=== PATIENT | female | born 2000 | race Caucasian/White ===

== ENCOUNTER 2018-05-08 15:07 | Emergency (ER) | payer OTHER ==
[2018-05-08 15:13] VITALS: BP 127/81
--- NOTE | 2018-05-08 15:35 | EDPHY ---
H & P Stated Complaint: fell in bathtub yesterday hitting head hard/n/v williamson Time Seen by Provider: 05/08/18 15:18 HPI/ROS: CHIEF COMPLAINT: Head injury, vomiting HISTORY OF PRESENT ILLNESS: 88-year-old female presents with vomiting and headache after a head injury. Yesterday she slipped in the bathtub and fell forward, striking her head on the floor. Immediate onset of severe headache, described as the worst headache ever. Associated with multiple episodes of vomiting. Unable to tolerate oral fluids yesterday. The headache is less severe today, currently rated as 3/10. Ibuprofen with some relief. No nausea today. No neck pain or other injuries. REVIEW OF SYSTEMS: complete 10 point ROS negative except at noted in the HPI - Personal History LMP (Females 10-55): Now Current Tetanus Diphtheria and Acellular Pertussis (TDAP): Yes - Medical/Surgical History Hx Asthma: No Hx Chronic Respiratory Disease: No Hx Diabetes: No Hx Cardiac Disease: No Hx Renal Disease: No Hx Cirrhosis: No Hx Alcoholism: No Hx HIV/AIDS: No Hx Splenectomy or Spleen Trauma: No Other PMH: denies - Social History Smoking Status: Never smoked - Physical Exam Exam: General Appearance: Alert, pleasant Head: Normal inspection, tenderness over the forehead without ecchymosis or swelling Eyes: No conjunctival erythema, PERRLA, EOMI ENT, Mouth: no oral trauma, no bony tenderness Neck: Nontender, full range of motion without pain Respiratory: No chest wall tenderness, lungs clear bilaterally Cardiovascular: Regular rate and rhythm Abdomen: Abdomen is soft and nontender Skin: No lacerations, no abrasions Back: No midline T/L/S tenderness Extremities: No tenderness Neurological: A&Ox3, normal motor function, normal sensory exam, cranial nerves intact Psychiatric: Mood and affect normal Constitutional: Initial Vital Signs Temperature (C) 36.8 C 05/08/18 15:10 Heart Rate 81 05/08/18 15:10 Respiratory Rate 16 05/08/18 15:10 Blood Pressure 127/81 H 05/08/18 15:10 O2 Sat (%) 97 05/08/18 15:10 O2 Delivery Mode Room Air Allergies/Adverse Reactions: Penicillins Allergy (Verified 05/08/18 15:10) Home Medications: Medication Instructions Recorded MIRENA 05/08/18 Seroquel 05/08/18 Zoloft 100mg (*) 05/08/18 Medical Decision Making - Diagnostics Imaging Results: Head CT 05/08/18 15:32 Impression: Head CT within normal limits. Final concordant results cussed with Dr. Vidal at 3:58 PM Imaging: Discussed imaging studies w/ science writer Radiologist ED Course/Re-evaluation: This patient presents with a severe headache and vomiting after head injury. Neurologic exam is normal and GCS is 15. CT scan of the brain ordered d/t worse WILLIAMSON yesterday after [facility]. CT scan results discussed with the patient. Fortunately the results are normal. Head injury precautions given. Differential Diagnosis: Includes though not limited to intracranial hemorrhage, skull fracture, cervical spine fracture Departure - Departure Disposition: Home, Routine, Self-Care Clinical Impression: Concussion Qualifiers: Encounter type: initial encounter Loss of consciousness presence/duration: without LOC Qualified Code(s): S06.0X0A - Concussion without loss of consciousness, initial encounter Condition: Good Instructions: Concussion (ED) Additional Instructions: 1. Cognitive rest while symptomatic. Limit screen time (phone, TV, computer) until symptoms resolve. 2. Limit physical activities that could lead to head injury until symptoms have completely resolved. Wear a helmet when skiing and biking. 3. Use Tylenol and ibuprofen as directed on the packaging as needed for pain for the next few days. 4. Follow up with your primary care provider and/or head injury specialist if you have persisting symptoms for more than 10 days. 5. Return to the ED for severe headache, weakness or numbness on one side of your body, or other worsening of condition. Referrals: Stephani Arnold MD [Medical Doctor] - As per Instructions Stand Alone Forms: School Excuse
== END 2018-05-08 16:09 | disposition home or self-care (01) ==
DX: S06.0X0A Concussion without loss of consciousness, initial encounter (principal); R11.10 Vomiting, unspecified; W18.2XXA Fall in (into) shower or empty bathtub, initial encounter; Y92.002 Bathroom of unspecified non-institutional (private) residence as the place of occurrence of the external cause; Y93.E1 Activity, personal bathing and showering; Y99.9 Unspecified external cause status